=== PATIENT | female | born 1945 | race Caucasian/White ===

== ENCOUNTER 2016-04-26 05:25 | Inpatient (IN) | payer BC, OTHER ==
[2016-04-23 12:30] VITALS: BMI 28.0
[~2016-04-26] VITALS: Ht 162.6 cm; Wt 73.8 kg
[2016-04-26] VITALS (10 sets, daily range): BP systolic 102–130; BP diastolic 62–69; PULSE 62–96; TEMP 36.6–36.9; O2SAT 94–100; Ht 162.6 cm; Wt 73.8 kg
[~2016-04-26 05:25] MED LIST: AMPI500C9 PO
[2016-04-26] MEDS ORDERED: ACETAMINOPHEN IV 1000MG/100ML IV SCH (06:00)
[2016-04-26] MEDS ORDERED: LACTATED RINGER'S 1000ML 1,000 ML IV SCH (06:00)
[2016-04-26] MEDS ORDERED: CEFAZOLIN 2000 MG/60 ML D5W IV SCH (06:00)
[2016-04-26] MEDS ORDERED: ROCURONIUM BROMIDE 10 MG/ML 5 ML VIAL ONE ×3 (06:48→11:42)
[2016-04-26] MEDS ORDERED: FENTANYL CITRATE INJ 50 MCG/1 ML 2 ML VIAL ONE (06:48)
[2016-04-26] MEDS ORDERED: NEOSTIGMINE METHYLSULFATE 5 MG/5 ML SYR ONE (06:48)
[2016-04-26] MEDS ORDERED: LIDOCAINE HCL 2% 2 ML VIAL (20MG/ML) ONE (06:48)
[2016-04-26] MEDS ORDERED: ONDANSETRON INJ 2 MG/ML 2 ML VIAL ONE (06:48)
[2016-04-26] MEDS ORDERED: MIDAZOLAM HCL 1 MG/ML 2ML VIAL ONE (06:48)
[2016-04-26] MEDS ORDERED: GLYCOPYRROLATE INJ 0.2 MG/ML VIAL ONE (06:48)
[2016-04-26] MEDS ORDERED: PROPOFOL IV EMULSION 10 MG/ML 20 ML VIAL IV ONE (06:48)
[2016-04-26] MEDS ORDERED: DEXAMETHASONE SOD INJ 4 MG/ML VIAL ONE (06:49)
--- NOTE | 2016-04-26 07:03 | History & Physical Bridge Note ---
H&P Re-Evaluation Bridge Note: I have examined the patient, reviewed the History & Physical and in the interval since the performance of the History & Physical I have noted the following changes of clinical significance: No changes noted
[2016-04-26] MEDS ORDERED: HYDROmorphone INJ 2 MG/ML SYR/VIAL ONE (08:20)
[2016-04-26] MEDS ORDERED: ALBUMIN HUMAN 5% 12.5 GM/250 ML VIAL IV ONE (10:13)
[2016-04-26] MEDS ORDERED: SURGICEL ABSORB HEMOSTAT 2IN X 14IN TOP ONE (10:20)
[2016-04-26] MEDS ORDERED: HYDROmorphone INJ 1 MG/ML SYR IV PRN ×2 (12:15→12:30)
[2016-04-26] MEDS ORDERED: ACETAMINOPHEN 500 MG TAB PO SCH (12:15)
[2016-04-26] MEDS ORDERED: ONDANSETRON INJ 2 MG/ML 2 ML VIAL IV PRN ×2 (12:15→12:30)
[2016-04-26] MEDS ORDERED: LABETALOL HCL IV 5 MG/ML 20ML IV PRN (12:30)
[2016-04-26] MEDS ORDERED: FLUMAZENIL 0.1 MG/1 ML 10 ML VIAL IV PRN (12:30)
[2016-04-26] MEDS ORDERED: EpHEDrine SULFATE INJ 50 MG/ML AMP IV PRN (12:30)
[2016-04-26] MEDS ORDERED: PROMETHAZINE HCL INJ 12.5 MG in SODIUM CHLORIDE 0.9% 50ML 50 ML IV PRN (12:30)
[2016-04-26] MEDS ORDERED: ATROPINE SULFATE 0.1 MG/ML 5ML SYR IV PRN (12:30)
[2016-04-26] MEDS ORDERED: NALOXONE HCL 0.4 MG/1 ML VIAL/CARP IV PRN (12:30)
[2016-04-26] MEDS ORDERED: HYDROmorphone INJ 1 MG/ML SYR ONE (12:38)
[2016-04-26 12:42] LABS: ISTAT CREATININE 0.8 mg/dl (0.6-1.3); ISTAT HEMOGLOBIN 11.2 g/dl (12.0-16.0); ISTAT IONIZED CALCIUM 1.18 mmol/l (1.12-1.32)
--- NOTE | 2016-04-26 12:43 | [facility] Post Operative Brief Note ---
Immediate Operative Summary Operative Date Apr 26, 2016. Pre-Operative Diagnosis Hydronephrosis of right kidney due to recurrent obstructing tumor versus scarring Post-Operative Diagnosis Right hydronephrosis with obliterated ureter, no evidence of tumor Procedure(s) Performed Right Open Ureteral Resection and Anastomosis, Flexible Cystoscopy, Right ureteral stent placement, repair of right external iliac artery laceration Surgeon Dr. Rick Ibrahim Receiving Lead Surgeon(s) Dr. Marcus Hayden and Joao COLEMAN Estimated Blood Loss 220 ML Findings Obliterated ureter at the level of stricture on the right, viable and well vascularized anastomosis, copious scarring on right pelvic sidewall. Specimens Permanent Specimens A: Proximal Ureter, Right B: Distal Ureter, Right Drains #10 MARGARITA RLQ, 6 fr multilength ureteral stent, 16 fr phan to gravity Anesthesia GAET Complication(s) None Disposition Recovery Room / PACU
[2016-04-26 12:46] LABS: HEMATOCRIT 34.2 % (37-47); MEAN CELL VOLUME 92.4 fL (80-100); MEAN CORPUSCULAR HEMOGLOBIN 30.5 pg (25-34); PLATELET COUNT 143 K/uL (130-400)
[2016-04-26 13:07] LABS: BUN/CREATININE RATIO 13.3 (10-20); CALCIUM 8.2 mg/dl (8.5-10.1); CREATININE 0.97 mg/dl (0.60-1.20); POTASSIUM 3.8 mmol/L (3.5-5.1)
--- NOTE | 2016-04-26 13:17 | DIAGNOSTIC IMAGING REPORT ---
KUB HISTORY: s/p stent placement for ureteral reanastomosis COMPARISON: None. FINDINGS: There is a right ureteral stent which appears to be in good position. There is a percutaneous nephrostomy tube in place. This overlaps the proximal ureteral stent. The tube/stent appears to be intact. Surgical clips and suture material within the right lower quadrant. There are skin stormy within the right lower quadrant. There is an overlapping surgical drain within the right lower quadrant. No renal calculi. No ureteral calculi. No pneumoperitoneum or pneumatosis. IMPRESSION: Postoperative changes as described above with a right ureteral stent and percutaneous nephrostomy tube which appear to be in good position by conventional radiographic technique. Electronically signed by: Wili Aguiar M.D. 04/26/2016 1:15 PM
--- NOTE | 2016-04-26 13:28 | Anesthesiology Progress Note ---
Anesthesia Post Op Note Date & Time Apr 26, 2016 at 13:27 Vital Signs Pain Intensity: 2 Vital Signs Past 12 Hours Date Time Temp Pulse Resp B/P Pulse Ox O2 Delivery O2 Flow Rate FiO2 04/26/16 13:15 36.9 66 12 114/57 98 Nasal Cannula 2 04/26/16 13:05 36.9 61 16 118/64 98 Nasal Cannula 2 04/26/16 12:55 62 14 119/61 99 Nasal Cannula 2 04/26/16 12:45 66 18 123/68 100 Mask 10 04/26/16 12:35 86 18 135/78 100 Mask 10 04/26/16 12:25 37.6 80 20 123/74 100 Mask 10 04/26/16 05:57 36.6 96 20 130/67 97 Room Air Notes Mental Status: alert / awake / arousable, participated in evaluation Pt Amnestic to Procedure: Yes Nausea / Vomiting: adequately controlled Pain: adequately controlled Airway Patency, RR, SpO2: stable & adequate BP & HR: stable & adequate Hydration State: stable & adequate Anesthetic Complications: no major complications apparent
--- NOTE | 2016-04-26 13:55 | OPERATIVE REPORT ---
DATE OF OPERATION: 04/26/2016 PREOPERATIVE DIAGNOSES: Right mid ureteral stricture and hydronephrosis, history of recurrent gynecological malignancy. POSTOPERATIVE DIAGNOSIS: Right obliterated mid ureter with stricture, no evidence of recurrent carcinoma. PROCEDURES: Right open resection and anastomosis of the ureter, flexible cystoscopy with right ureteral stent placement, repair of external iliac artery laceration. SURGEON: Dr. Rick Ibrahim. ASSISTANTS: Dr. Marcus Hayden and VIRGINIA Akers. ANESTHESIA: General anesthesia with endotracheal intubation. ESTIMATED BLOOD LOSS: 220 mL. IV FLUIDS: 1500 mL of crystalloid and 250 mL of albumin. DRAINS LEFT IN PLACE: Include a #10 MARGARITA drain in the right lower quadrant, 6-Belgian multilength ureteral stent confirmed in the bladder on cystoscopy and a 16-Belgian Santos catheter to gravity drainage. SPECIMENS SENT TO PATHOLOGY: Proximal right ureter and distal right ureter. FINDINGS: Obliterated ureter at the level of the stricture on the right hand side, viable and well vascularized ureteral stumps with a watertight anastomosis, copious scarring on the right pelvic sidewall, small laceration of the external iliac artery repaired with a 4-0 Prolene with excellent hemostasis. COMPLICATIONS: Small laceration of external right iliac artery. BRIEF HISTORY: Ms. 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 She was found on subsequent PET scan to have a question of persistent disease at the site of resection as well as progressive right-sided hydronephrosis. Retrograde pyelography demonstrated a blind ending ureter at the level of surgical clips in proximity to the mid ureter. A percutaneous nephrostomy was placed and an antegrade nephrostogram demonstrated an absent portion of the ureter not allowing for the passage of even contrast in the mid ureter for approximately 3 cm in length. After discussion of risks and benefits of various forms of management, she has decided upon open resection of her stenotic ureter and anastomosis to manage her disease. The numerous potential complications which could be encountered have been discussed with the patient at length. Please see H\T\P for further details. The patient had a positive culture via her nephrostomy for which she was treated with suppressive antibiotics in the form of culture specific ampicillin preoperatively. Intravenous antibiotics are used for preoperative coverage today. The patient received SCDs for DVT prophylaxis. DESCRIPTION OF PROCEDURE: The patient was properly identified and brought to the operative suite. After identification of appropriate consent on the chart, general anesthesia with endotracheal intubation was initiated and the patient was prepped and draped in a standard fashion for this procedure. timers inspector-out procedure was followed. The patient was placed in a gentle mild right flank position with the right side up. Some flexion was applied to the table. All pressure points were well padded. A percutaneous nephrostomy was hung to an IV drip to allow for irrigation of the proximal ureter as necessary. After prepping and draping the patient, a sterile Santos catheter was placed. A modified Patel incision was made in the right lower quadrant and brought down to the fascia via anterior abdominal wall. The fascia of the external oblique was incised and muscle layers were traversed until the peritoneum was identified. We bluntly dissected laterally to access the retroperitoneum and the psoas without entering the peritoneal cavity. Some small peritoneotomy were made throughout the case and closed at the end prior to completion of closure, but these were limited in size. The ureter was identified in its expected location over the psoas muscle. A vessel loop was placed around it to allow for mobilization distally. Copious amounts of scarring in the retroperitoneum and on the right pelvic sidewall were appreciated throughout the case. Dissection was carried out distally over the common iliacs and iliac vasculature. Anatomy was somewhat distorted due to scarring. While crossing the external iliac vessels and over the course of a slow and careful dissection, the ureter was noted to obliterate with the distal ureter continuity not being clear. At this level, a small laceration was made posterior to the ureter at the level of the external iliac artery. Using pressure above and below with the sponge sticks a closure was able to be made using a 4-0 Prolene suture with excellent hemostasis. Dissection was continued. Seeing that the ureter was not clearly identified, a decision was made to proceed with intraoperative cystoscopy and stent placement to assist. The Santos catheter was removed and flexible cystoscope was passed into the bladder. No abnormal intravesical findings including papillary masses or calculi were appreciated on limited cystoscopy. Right ureteral orifice was identified and a 5-Belgian blunt tip catheter was advanced upward into the surgical field. This was able to be palpated and was sutured using a 3-0 Vicryl to use as a tag. Using the intraoperative suture and further careful dissection with Kitnatalie and Metzenbaum as necessary, the distal ureter was able to be identified, was freed downward the level of the bladder. Good vascularity of the ureter outside the area of complete mid ureteral obliteration with the ureter was down to a fibrous band was noted. The ureter was spatulated on both ends and some of the flexion was removed from the table. After sufficient proximal and distal dissection, the 2 ends of the ureter were able to be reapproximated in a tension free fashion. Interrupted 3-0 and 4-0 Vicryl sutures were used to complete the anastomosis. A percutaneous nephrostomy was flushed and gaps with leaks were closed as necessary. Good viability of both ends of the ureter were appreciated. The wound was generously irrigated and excellent hemostasis was appreciated. A separate inferior stab wound was made to pass a #10 MARGARITA drain which was placed within the retroperitoneum while avoiding placing it directly over the anastomosis. The remainder of the flexion was removed from the table. Peritoneotomy were closed as noted. Wound was closed in 2 levels using #1 Vicryl suture on the transversalis and internal oblique musculature and #1 PDS on the fascia of the external oblique. 3-0 Vicryl suture was used in an interrupted fashion to close the subcutaneous tissues and skin stormy were used at the level of the skin. MARGARITA was placed to bulb suction. Santos catheter was replaced and placed to gravity drainage. Prior to completion of the anastomosis, a 6-Belgian multilength ureteral stent was advanced from the anastomosis distally and proximally with a hydronephrotic drip present from both sides. A cystoscope was passed into the bladder and bladder was evaluated and noted to have redundant coil within it prior to completion of the case. Santos catheter was replaced as noted and anesthesia was reversed. The patient was transferred to recovery room in stable condition. FOLLOWUP CARE: The patient will be brought to the recovery room and admitted to the floor for standard postoperative management. I attest to the content of the Intraoperative Record and any orders documented therein. Any exceptions are noted below. PRETTY
[2016-04-26] MEDS: ACETAMINOPHEN IV 1,000 MG in EMPTY BAG 0 ML IV SCH ×2 (15:34→22:41)
[2016-04-26] MEDS: LACTATED RINGER'S 1000ML 1,000 ML IV SCH ×2 (15:35→20:44)
--- NOTE | 2016-04-26 15:43 | Anesthesiology Progress Note ---
Anesthesia Progress Note Date of Service Apr 26, 2016. Progress Notes The patient is s/p ureteral surgery by Dr. Ibrahim. She was signed out of the PACU without any issues. However, while on the floor the patient noted that her left eye felt scratchy as if there was something in it. On exam the patient 's left eye appears red and teary. The patient likely has a corneal abrasion. She will be given erythromycin eye ointment several times/day for the next four days for her left eye. She was counseled not to touch or scratch her left eye. If the patient's eye is not feeling better by tomorrow than she is to contact the anesthesia department for a reevaluation. I spoke to Dr. Fierro who provided her anesthesia. He will be electronic equipment installer for the upcoming weekend and will be able to follow up with her.
[2016-04-26] MEDS: CEFAZOLIN IV 1,000 MG in DEXTROSE 5% 50ML 50 ML IV SCH ×2 (15:52→23:39)
[2016-04-26] MEDS: ERYTHROMYCIN OP OINT 5 MG/GM 3.5 GM TUBE OPL SCH ×2 (16:22→20:43)
[2016-04-26] MEDS: HEPARIN SOD 5000 UNIT/0.5 ML CARP SQ SCH (18:32)
[2016-04-26] MEDS: DOCUSATE SODIUM 100 MG CAP PO SCH (20:43)
[2016-04-27 03:50] VITALS: BP 106/63; PULSE 84; TEMP 36.9; O2SAT 95
[2016-04-27] MEDS: LACTATED RINGER'S 1000ML 1,000 ML IV SCH ×2 (06:10→16:28)
[2016-04-27] MEDS: OXYCODONE/ACETAMINOPHEN 7.5-325 TAB PO PRN ×4 (06:11→19:22)
[2016-04-27] MEDS: ERYTHROMYCIN OP OINT 5 MG/GM 3.5 GM TUBE OPL SCH ×4 (06:11→19:26)
[2016-04-27] MEDS: HEPARIN SOD 5000 UNIT/0.5 ML CARP SQ SCH ×2 (06:16→19:22)
[2016-04-27 06:37] LABS: BASO % 0.1 %; BASO ABS # 0.01 K/uL (0-0.2); COMPLETE YES; HEMATOCRIT 30.7 % (37-47); IG% 0.1 %; LYMPH ABS # 1.71 K/uL (1.2-3.4); MEAN CELL VOLUME 93.3 fL (80-100); MEAN CORPUSCULAR HEMOGLOBIN 30.7 pg (25-34); MEAN CORPUSCULAR HGB CONC 32.9 g/dl (32-36); MEAN PLATELET VOLUME 9.5 fL (7.4-10.4); MONO % 7.2 %; NEUT % 67.6 %; PLATELET COUNT 147 K/uL (130-400); RED BLOOD COUNT 3.29 M/uL (4.2-5.4); WHITE BLOOD COUNT 6.85 K/uL (4.8-10.8)
[2016-04-27 07:03] LABS: BUN/CREATININE RATIO 15.5 (10-20); CALCIUM 8.2 mg/dl (8.5-10.1); CREATININE 0.93 mg/dl (0.60-1.20); POTASSIUM 4.2 mmol/L (3.5-5.1)
[2016-04-27] MEDS: CEFAZOLIN IV 1,000 MG in DEXTROSE 5% 50ML 50 ML IV SCH (07:18)
[2016-04-27 07:49] VITALS: BP 105/62; PULSE 83; TEMP 36.9; O2SAT 95
[2016-04-27] MEDS: ACETAMINOPHEN 500 MG TAB PO SCH ×3 (08:14→21:07)
[2016-04-27] MEDS: DOCUSATE SODIUM 100 MG CAP PO SCH ×2 (08:32→21:07)
--- NOTE | 2016-04-27 08:50 | Anesthesiology Progress Note ---
Anesthesia Post Op Note Date & Time Apr 27, 2016 at 08:49 Vital Signs Pain Intensity: 2.0 Vital Signs Past 12 Hours Date Time Temp Pulse Resp B/P Pulse Ox O2 Delivery O2 Flow Rate FiO2 04/27/16 07:49 36.9 83 16 105/62 95 Room Air 04/27/16 07:20 Room Air 04/27/16 03:50 36.9 84 16 106/63 95 Room Air 04/26/16 23:30 Room Air 04/26/16 23:15 36.6 71 16 102/62 94 Room Air Notes Mental Status: alert / awake / arousable, participated in evaluation Pt Amnestic to Procedure: Yes Nausea / Vomiting: adequately controlled Pain: adequately controlled Airway Patency, RR, SpO2: stable & adequate BP & HR: stable & adequate Hydration State: stable & adequate Anesthetic Complications: no major complications apparent
[2016-04-27] MEDS ORDERED: OXYCODONE/ACETAMINOPHEN 7.5-325 TAB PO PRN (09:00)
--- NOTE | 2016-04-27 09:44 | Progress Note ---
Subjective Date of Service: Apr 27, 2016. Subjective Pt evaluation today including: conversation w/ patient, physical exam, chart review, lab review, review of inpatient medication list Pain: Incisional, controlled PO Intake: Sb clears, no emesis Voiding: phan catheter in place 71 yo female POD#1 s/p R ureteral open excision and reanastomosis, doing well. L corneal abrasion yesterday noted, feels better today. She notes she was OOBTC twice yesterday, MARGARITA with minimal serosang output. Doing well overall, intraop findings reviewed with patient. Hb drifting downards, otherwise labs stable, no acute or ongoing blood loss suspected. Review of Systems Constitutional: No chills, No fever Eyes: No worsening of vision ENT: No hearing loss Respiratory: No shortness of breath, No sputum, No wheezing Cardiac: No chest pain Abdomen: + pain, No nausea, No vomiting Female : + see HPI, No hematuria Neurologic: No memory loss, No numbness/tingling, No paralysis, No weakness Endo: No excessive urination Skin: No new/changing skin lesions Objective Vital Signs Date Time Temp Pulse Resp B/P Pulse Ox O2 Delivery O2 Flow Rate FiO2 04/27/16 07:49 36.9 83 16 105/62 95 Room Air 04/27/16 07:20 Room Air 04/27/16 03:50 36.9 84 16 106/63 95 Room Air 04/26/16 23:30 Room Air 04/26/16 23:15 36.6 71 16 102/62 94 Room Air 04/26/16 19:05 36.9 88 16 119/69 100 Nasal Cannula 2.0 04/26/16 19:00 100 Nasal Cannula 2.0 04/26/16 17:05 36.7 86 16 108/62 99 Nasal Cannula 2.0 04/26/16 16:13 36.9 70 16 113/67 100 Nasal Cannula 2.0 04/26/16 15:45 95 Nasal Cannula 2.0 04/26/16 15:14 36.6 75 16 112/66 94 Nasal Cannula 3.0 04/26/16 14:28 62 16 109/63 98 Nasal Cannula 2.0 04/26/16 14:00 36.6 68 16 117/68 98 Nasal Cannula 2.0 04/26/16 14:00 98 Nasal Cannula 2.0 04/26/16 14:00 98 Nasal Cannula 2.0 04/26/16 13:50 36.9 77 22 103/58 99 Nasal Cannula 2 04/26/16 13:35 36.9 64 12 112/54 98 Nasal Cannula 2 04/26/16 13:25 74 15 115/60 99 Nasal Cannula 2 04/26/16 13:15 36.9 66 12 114/57 98 Nasal Cannula 2 04/26/16 13:05 36.9 61 16 118/64 98 Nasal Cannula 2 04/26/16 12:55 62 14 119/61 99 Nasal Cannula 2 04/26/16 12:45 66 18 123/68 100 Mask 10 04/26/16 12:35 86 18 135/78 100 Mask 10 04/26/16 12:25 37.6 80 20 123/74 100 Mask 10 Physical Exam General Appearance: WD/WN, no apparent distress ENT: hearing grossly normal Neck: supple, no adenopathy Respiratory/Chest: no respiratory distress, no accessory muscle use Cardiovascular: no JVD Abdomen: soft, + pertinent finding Neurologic/Psychiatric: alert, oriented x 3 Skin: normal color Laboratory Results Last 24 Hours Test 04/26/16 11:28 04/26/16 12:40 04/27/16 06:15 Bedside Hemoglobin 11.2 g/dl Bedside Hematocrit 33 % Bedside Sodium 140 mEq/L Bedside Potassium 3.9 mEq/L Bedside Chloride 102 mEq/L Bedside Total CO2 27 mEq/l Anion Gap 15.0 mmol/L 9.0 mmol/L 7.0 mmol/L Bedside Blood Urea Nitrogen 13 mg/dl Bedside Creatinine 0.8 mg/dl Bedside Glucose (other) 110 mg/dl Bedside Ionized Calcium (Lila) 1.18 mmol/l White Blood Count 6.30 K/uL 6.85 K/uL Red Blood Count 3.70 M/uL 3.29 M/uL Hemoglobin 11.3 g/dL 10.1 g/dL Hematocrit 34.2 % 30.7 % Mean Corpuscular Volume 92.4 fL 93.3 fL Mean Corpuscular Hemoglobin 30.5 pg 30.7 pg Mean Corpuscular Hemoglobin Concent 33.0 g/dl 32.9 g/dl RDW Standard Deviation 44.8 fL 47.1 fL RDW Coefficient of Variation 13.4 % 13.7 % Platelet Count 143 K/uL 147 K/uL Mean Platelet Volume 9.0 fL 9.5 fL Sodium Level 142 mmol/L 140 mmol/L Potassium Level 3.8 mmol/L 4.2 mmol/L Chloride Level 107 mmol/L 104 mmol/L Carbon Dioxide Level 26 mmol/L 29 mmol/L Blood Urea Nitrogen 13 mg/dl 14 mg/dl Creatinine 0.97 mg/dl 0.93 mg/dl Est Creatinine Clear Calc Drug Dose 53.9 ml/min 56.2 ml/min Estimated GFR () 69.1 72.7 Estimated GFR (Non- 59.6 62.7 BUN/Creatinine Ratio 13.3 15.5 Random Glucose 121 mg/dl 101 mg/dl Calcium Level 8.2 mg/dl 8.2 mg/dl Neutrophils (%) (Auto) 67.6 % Lymphocytes (%) (Auto) 25.0 % Monocytes (%) (Auto) 7.2 % Eosinophils (%) (Auto) 0.0 % Basophils (%) (Auto) 0.1 % Neutrophils # (Auto) 4.63 K/uL Lymphocytes # (Auto) 1.71 K/uL Monocytes # (Auto) 0.49 K/uL Eosinophils # (Auto) 0.00 K/uL Basophils # (Auto) 0.01 K/uL Immature Granulocyte % (Auto) 0.1 % Immature Granulocyte # (Auto) 0.01 K/uL Assessment and Plan A/P 71 yo female POD#1 s/p R ureteral excision and anastomosis. Doing well. Increase diet and activity today. Plan discussed with patient - TOV in 5 days, nephrostogram in 2 weeks prior to postop visit with possible DC of PCN at that time depending on results. Will leave stent in place x 4-6 weeks. Patient on ampicillin preop for positive nephrostomy culture. Will see Dr. Hayden over the weekend. Continued [facility] stay due to: inadequate po fluid intake, inadequate oral pain control Discharge planning: home
[2016-04-27 11:05] VITALS: BP 119/73; PULSE 88; TEMP 37; O2SAT 96
[2016-04-27 15:05] VITALS: BP 117/70; PULSE 90; TEMP 36.8; O2SAT 95
[2016-04-27 20:58] VITALS: BP 96/58; PULSE 81; TEMP 36.9; O2SAT 91
[2016-04-27 23:38] VITALS: BP 106/65; PULSE 85; TEMP 36.8; O2SAT 92
[2016-04-28] MEDS: LACTATED RINGER'S 1000ML 1,000 ML IV SCH ×3 (00:03→19:01)
[2016-04-28] MEDS: ACETAMINOPHEN 500 MG TAB PO SCH ×4 (02:55→20:33)
[2016-04-28] MEDS: ERYTHROMYCIN OP OINT 5 MG/GM 3.5 GM TUBE OPL SCH ×4 (06:22→19:00)
[2016-04-28 06:41] LABS: BASO % 0.2 %; BASO ABS # 0.01 K/uL (0-0.2); COMPLETE YES; EOS % 0.2 %; HEMATOCRIT 28.4 % (37-47); LYMPH % 28.6 %; LYMPH ABS # 1.73 K/uL (1.2-3.4); MEAN CELL VOLUME 92.5 fL (80-100); MEAN CORPUSCULAR HEMOGLOBIN 30.9 pg (25-34); MEAN CORPUSCULAR HGB CONC 33.5 g/dl (32-36); MEAN PLATELET VOLUME 9.4 fL (7.4-10.4); MONO % 6.6 %; NEUT % 64.4 %; PLATELET COUNT 133 K/uL (130-400); RED BLOOD COUNT 3.07 M/uL (4.2-5.4); WHITE BLOOD COUNT 6.04 K/uL (4.8-10.8)
[2016-04-28] MEDS: HEPARIN SOD 5000 UNIT/0.5 ML CARP SQ SCH ×2 (06:43→19:07)
[2016-04-28 07:07] LABS: CALCIUM 8.1 mg/dl (8.5-10.1); CREATININE 0.74 mg/dl (0.60-1.20); POTASSIUM 3.9 mmol/L (3.5-5.1)
[2016-04-28 07:13] VITALS: BP 123/71; PULSE 90; TEMP 36.9; O2SAT 95
[2016-04-28] MEDS: OXYCODONE/ACETAMINOPHEN 7.5-325 TAB PO PRN ×3 (08:33→19:03)
[2016-04-28] MEDS: DOCUSATE SODIUM 100 MG CAP PO SCH ×2 (09:00→20:51)
--- NOTE | 2016-04-28 10:08 | Progress Note ---
Progress Note S: Doing very well - tolerating a diet - no nausea - no BM/flatus yet - OOB to chair - no ambulation yet - reports she had mild hematuria with activity overnight, cleared this AM O: 04/28/16 06:12 Red Blood Count 3.07, Mean Corpuscular Volume 92.5, Mean Corpuscular Hemoglobin 30.9, Mean Corpuscular Hemoglobin Concent 33.5, Mean Platelet Volume 9.4, Neutrophils (%) (Auto) 64.4, Lymphocytes (%) (Auto) 28.6, Monocytes (%) (Auto) 6.6, Eosinophils (%) (Auto) 0.2, Basophils (%) (Auto) 0.2, Neutrophils # (Auto) 3.89, Lymphocytes # (Auto) 1.73, Monocytes # (Auto) 0.40, Eosinophils # (Auto) 0.01, Basophils # (Auto) 0.01 04/28/16 06:12 Test 04/28/16 06:12 White Blood Count 6.04 K/uL (4.8-10.8) Red Blood Count 3.07 M/uL (4.2-5.4) Hemoglobin 9.5 g/dL (12.0-16.0) Hematocrit 28.4 % (37-47) Mean Corpuscular Volume 92.5 fL (80-100) Mean Corpuscular Hemoglobin 30.9 pg (25-34) Mean Corpuscular Hemoglobin Concent 33.5 g/dl (32-36) Platelet Count 133 K/uL (130-400) Mean Platelet Volume 9.4 fL (7.4-10.4) Neutrophils (%) (Auto) 64.4 % Lymphocytes (%) (Auto) 28.6 % Monocytes (%) (Auto) 6.6 % Eosinophils (%) (Auto) 0.2 % Basophils (%) (Auto) 0.2 % Neutrophils # (Auto) 3.89 K/uL (1.4-6.5) Lymphocytes # (Auto) 1.73 K/uL (1.2-3.4) Monocytes # (Auto) 0.40 K/uL (0.11-0.59) Eosinophils # (Auto) 0.01 K/uL (0-0.5) Basophils # (Auto) 0.01 K/uL (0-0.2) RDW Standard Deviation 46.4 fL (36.4-46.3) RDW Coefficient of Variation 13.9 % (11.5-14.5) Immature Granulocyte % (Auto) 0.0 % Immature Granulocyte # (Auto) 0.00 K/uL (0.00-0.02) Anion Gap 7.0 mmol/L (3-11) Est Creatinine Clear Calc Drug Dose 70.6 ml/min Estimated GFR () 95.8 Estimated GFR (Non- 82.7 BUN/Creatinine Ratio 13.0 (10-20) Calcium Level 8.1 mg/dl (8.5-10.1) Vital Signs Past 12 Hours Date Time Temp Pulse Resp B/P Pulse Ox O2 Delivery O2 Flow Rate FiO2 04/28/16 07:13 36.9 90 20 123/71 95 04/27/16 23:55 Room Air 04/27/16 23:38 36.8 85 16 106/65 92 Room Air Low MARGARITA output - appropriate UoP NAD AAOx3 no resp distress RRR abd soft, incision healing appropriately - dressing removed - stormy intact - MARGARITA serosang - urine clear (phan) A/p: POD #2 s/p R U-U - keep all drains for now - goal of ambulation today - will watch her H and H - although she is asymptomatic - assuming she continues to progress overnight, we will plan for d/c of phan in AM, MARGARITA later in the day, and possible d/c home tomorrow afternoon
[2016-04-28 15:01] VITALS: BP 122/72; PULSE 92; TEMP 37; O2SAT 95
[2016-04-28 23:02] VITALS: BP 113/68; PULSE 85; TEMP 36.5; O2SAT 96
[2016-04-29] MEDS: OXYCODONE/ACETAMINOPHEN 7.5-325 TAB PO PRN ×2 (00:02→11:31)
[2016-04-29] MEDS: ACETAMINOPHEN 500 MG TAB PO SCH ×2 (03:00→08:03)
[2016-04-29] MEDS: LACTATED RINGER'S 1000ML 1,000 ML IV SCH (03:39)
[2016-04-29 06:01] LABS: BASO % 0.2 %; BASO ABS # 0.01 K/uL (0-0.2); COMPLETE YES; EOS % 1.2 %; LYMPH % 31.9 %; LYMPH ABS # 1.36 K/uL (1.2-3.4); MEAN CELL VOLUME 93.3 fL (80-100); MEAN CORPUSCULAR HEMOGLOBIN 30.7 pg (25-34); MEAN CORPUSCULAR HGB CONC 32.9 g/dl (32-36); MEAN PLATELET VOLUME 9.4 fL (7.4-10.4); MONO % 6.1 %; NEUT % 60.6 %; PLATELET COUNT 136 K/uL (130-400); WHITE BLOOD COUNT 4.26 K/uL (4.8-10.8)
[2016-04-29] MEDS: ERYTHROMYCIN OP OINT 5 MG/GM 3.5 GM TUBE OPL SCH ×2 (06:21→11:00)
[2016-04-29] MEDS: HEPARIN SOD 5000 UNIT/0.5 ML CARP SQ SCH (06:21)
[2016-04-29 06:28] LABS: CALCIUM 8.2 mg/dl (8.5-10.1); CREATININE 0.71 mg/dl (0.60-1.20); POTASSIUM 3.8 mmol/L (3.5-5.1)
[2016-04-29] MEDS: DOCUSATE SODIUM 100 MG CAP PO SCH (08:02)
[2016-04-29] MEDS ORDERED: HYDR-5688 PO (10:14)
--- NOTE | 2016-04-29 10:16 | Discharge Instructions ---
Discharge Instructions Admission Reason for Admission: Right Ureteral Obstruction Discharge Discharge Diagnosis / Problem: right ureteral stricture Discharge Goals Goal(s): Decrease discomfort, Improve function, Increase independence, Improve disease control Activity Recommendations Activity Limitations: per Instructions/Follow-up section Lifting Limitations: no more than 25 pounds Exercise/Sports Limitations: until after follow-up appointment May Resume Sexual Activity: after follow-up appointment Shower/Bathe: no limitations (you may shower - no bath or hot tub for 2 weeks) Driving or Machine Use: please avoid driving while on pain medications or until after cleared by Dr. Ibrahim . Instructions / Follow-Up Instructions / Follow-Up Please keep your nephrostomy tube clamped. Please keep your previously scheduled appointment with Dr. Ibrahim Current Hospital Diet Hospital Diet(s): Regular Diet Discharge Diet Recommended Diet: Regular Diet Procedures Procedures Performed: Right Open Ureteral Resection and Anastomosis, Flexible Cystoscopy, Right ureteral stent placement, repair of right external iliac artery laceration Pending Studies Studies pending at discharge: no Medical Emergencies . Who to Call and When: Medical Emergencies: If at any time you feel your situation is an emergency, please call 911 immediately. . Non-Emergent Contact Non-Emergency issues call your: Urologist Call Non-Emergent contact if: you have a fever, temperature is above 101.5, your pain is not controlled, your pain is worsening, wound has increased drainage, wound has increased redness . . "Provider Documentation" section prepared by Vin Chavarria. VTE Core Measure Inpt VTE Proph given/why not?: Treatment not indicated
--- NOTE | 2016-04-29 10:22 | Progress Note ---
Progress Note S: Doing well - ambulated without difficulty yesterday - tolerating a diet - no BM or flatus yet, but no nausea - pain well controlled - phan out this AM (30 min ago - no void yet) O: 04/29/16 05:32 Red Blood Count 3.00, Mean Corpuscular Volume 93.3, Mean Corpuscular Hemoglobin 30.7, Mean Corpuscular Hemoglobin Concent 32.9, Mean Platelet Volume 9.4, Neutrophils (%) (Auto) 60.6, Lymphocytes (%) (Auto) 31.9, Monocytes (%) (Auto) 6.1, Eosinophils (%) (Auto) 1.2, Basophils (%) (Auto) 0.2, Neutrophils # (Auto) 2.58, Lymphocytes # (Auto) 1.36, Monocytes # (Auto) 0.26, Eosinophils # (Auto) 0.05, Basophils # (Auto) 0.01 04/29/16 05:32 Test 04/29/16 05:32 White Blood Count 4.26 K/uL (4.8-10.8) Red Blood Count 3.00 M/uL (4.2-5.4) Hemoglobin 9.2 g/dL (12.0-16.0) Hematocrit 28.0 % (37-47) Mean Corpuscular Volume 93.3 fL (80-100) Mean Corpuscular Hemoglobin 30.7 pg (25-34) Mean Corpuscular Hemoglobin Concent 32.9 g/dl (32-36) Platelet Count 136 K/uL (130-400) Mean Platelet Volume 9.4 fL (7.4-10.4) Neutrophils (%) (Auto) 60.6 % Lymphocytes (%) (Auto) 31.9 % Monocytes (%) (Auto) 6.1 % Eosinophils (%) (Auto) 1.2 % Basophils (%) (Auto) 0.2 % Neutrophils # (Auto) 2.58 K/uL (1.4-6.5) Lymphocytes # (Auto) 1.36 K/uL (1.2-3.4) Monocytes # (Auto) 0.26 K/uL (0.11-0.59) Eosinophils # (Auto) 0.05 K/uL (0-0.5) Basophils # (Auto) 0.01 K/uL (0-0.2) RDW Standard Deviation 46.4 fL (36.4-46.3) RDW Coefficient of Variation 13.5 % (11.5-14.5) Immature Granulocyte % (Auto) 0.0 % Immature Granulocyte # (Auto) 0.00 K/uL (0.00-0.02) Anion Gap 4.0 mmol/L (3-11) Est Creatinine Clear Calc Drug Dose 73.6 ml/min Estimated GFR () 100.7 Estimated GFR (Non- 86.9 BUN/Creatinine Ratio 11.0 (10-20) Calcium Level 8.2 mg/dl (8.5-10.1) Vital Signs Past 12 Hours Date Time Temp Pulse Resp B/P Pulse Ox O2 Delivery O2 Flow Rate FiO2 04/29/16 08:05 Room Air 04/28/16 23:39 Room Air 04/28/16 23:02 36.5 85 16 113/68 96 Room Air NAD AAOx3 no resp distress RRR abd soft, not distended - incision without signs of infection - MARGARITA serous (low output overnight) - no edema A/p: S/p R uretero-ureteostomy - doing well - phan out now - if MARGARITA output remains stable, we will plan for MARGARITA d/c and d/c home later today
[2016-04-29 13:30] VITALS: BP 113/68; PULSE 85; TEMP 36.5; O2SAT 96
--- NOTE | 2016-04-30 14:03 | DISCHARGE SUMMARY ---
ADMITTING DIAGNOSIS: Right postoperative impassable mid ureteral stricture. DISCHARGE DIAGNOSIS: Same or same. PROCEDURES OVER THE COURSE ON ADMISSION: Include an open right resection and reanastomosis of strictured ureter on 04/26/2016. ADMITTING ATTENDING: Dr. Rick Ibrahim. COMPLICATIONS: None. BRIEF HISTORY: Ms. Holden is a pleasant 71-year-old female who I have seen for a history of progressive right-sided hydronephrosis due to evidence of ureteral obstruction at the site of prior resection of a LAB ASSOCIATE malignancy. Please see H\T\P for further details. The patient has decided on open resection of this area to manage her disease. Percutaneous nephrostomies in place and the patient had been preoperatively treated with suppressive antibiotics for her positive nephrostomy culture. She is being admitted for surgical intervention. HOSPITAL COURSE: The patient was admitted on 04/26/2016 after a right open ureteral resection and reanastomosis. Please see operative report for further details. Over the course of the following days, the patient's diet and activity were slowly advanced. By postoperative day #3, she was ambulating in the hallways, tolerating a regular diet with good appetite and comfortable on oral pain medication. A MARGARITA drain had put out minimal output over the course of her admission and a Santos catheter was removed prior to discharge home. Plan will be for antegrade nephrostogram approximately 2 weeks on discharge for consideration of a PCN removal. DISCHARGE INSTRUCTIONS: Please see discharge instruction sheet and medication list for further details. The patient is instructed to contact our service should she note any fevers, chills, nausea, vomiting or other significant difficulties in the postoperative period. Postoperative appointments are confirmed.
== END 2016-04-29 14:40 | disposition home or self-care (01) | DRG 659 ==
LOC: ENRESERVTM → ENRESERVDT → C.ACU 05:25 → C.MSW 07:00
PROVIDERS: ADMIT Urology; ATTEND Urology
PROC: 0T1 Urinary System, Bypass (ICD-10-PCS; 2016-04-26)
PROC: 0T768DZ Dilation of Right Ureter with Intraluminal Device, Via Natural or Artificial Opening Endoscopic (ICD-10-PCS; 2016-04-26)
PROC: 04QH0ZZ Repair Right External Iliac Artery, Open Approach (ICD-10-PCS; 2016-04-26)
PROC: 0TT60ZZ Resection of Right Ureter, Open Approach (ICD-10-PCS; principal; 2016-04-26 07:15)
DX: N13.1 Hydronephrosis with ureteral stricture, not elsewhere classified (principal); S35.511A Injury of right iliac artery, initial encounter; Y83.8 Other surgical procedures as the cause of abnormal reaction of the patient, or of later complication, without mention of misadventure at the time of the procedure

== ENCOUNTER → 2016-05-07 | Outpatient (CLI) | payer BC ==
[~2016-05-07] MED LIST changes: +HYDR-5688 PO
--- NOTE | 2016-05-07 10:13 | DIAGNOSTIC IMAGING REPORT ---
RIGHT ANTEGRADE NEPHROSTOGRAM CLINICAL HISTORY: Right hydronephrosis. Ureteral obstruction status post right ureteral resection and re-anastomosis. COMPARISON STUDY: PET/CT February 20, 2016. FLUOROSCOPY TIME: 1.9 minutes. PROCEDURE AND FINDINGS: A fiction writer fluoroscopic image of the right kidney, ureter and bladder was obtained. This demonstrated a right nephrostomy catheter and a right-sided ureteral stent which appears appropriately positioned. There are skin stormy. 50 cc of Optiray 300 was then injected through the patient's indwelling right nephrostomy and fluoroscopic images were obtained. 15 fluoroscopic images were obtained. These images demonstrate moderate to severe right hydronephrosis which may be accentuated due to contrast injection. There is also moderate dilatation of the proximal to mid right ureter. Contrast did pass into the bladder. On real-time fluoroscopic imaging, contrast was shown passing through the mid right ureter although the ureter appeared narrowed. The narrowing appeared smooth. No contrast extravasation was identified. The patient tolerated the procedure well and no medial cup occasions were evident. IMPRESSION: 1. Moderate to severe right hydronephrosis and moderate dilatation of the proximal to mid right ureter with smooth area of narrowing within the mid right ureter. However, contrast did pass through this area of narrowing (likely moderate in degree) and into the bladder. No complete ureteral obstruction. No contrast extravasation. 2. Appropriately positioned right nephrostomy and right ureteral stent. Electronically signed by: Moisés Plummer M.D. 05/07/2016 10:12 AM Dictated Date/Time: 05/07/2016 10:04 AM
== END | disposition home or self-care (01) ==
LOC: C.RAD 08:33
PROVIDERS: ATTEND Urology
DX: N13.30 Unspecified hydronephrosis (principal); N13.5 Crossing vessel and stricture of ureter without hydronephrosis; C56.9 Malignant neoplasm of unspecified ovary

== ENCOUNTER → 2016-05-08 | Outpatient (CLI) | payer BC | END | disposition home or self-care (01) | LOC: C.LABSPEC 16:50 | PROVIDERS: ATTEND Urology | DX: N13.30 Unspecified hydronephrosis (principal); N39.0 Urinary tract infection, site not specified; N13.5 Crossing vessel and stricture of ureter without hydronephrosis ==

== ENCOUNTER → 2016-05-25 | Outpatient (CLI) | payer BC | END | disposition home or self-care (01) | LOC: C.LAB 09:16 | PROVIDERS: ATTEND Nurse Practitioner Family | DX: N39.0 Urinary tract infection, site not specified (principal) ==

== ENCOUNTER → 2016-06-01 | Outpatient (CLI) | payer BC ==
[2016-06-01 10:07] LABS: BLOOD UREA NITROGEN 18 mg/dl (7-18); BUN/CREATININE RATIO 21.1 (10-20); CREATININE 0.83 mg/dl (0.60-1.20)
== END | disposition home or self-care (01) ==
LOC: C.LAB 08:43
PROVIDERS: ATTEND Urology
DX: N13.30 Unspecified hydronephrosis (principal); N13.5 Crossing vessel and stricture of ureter without hydronephrosis; N39.0 Urinary tract infection, site not specified

== ENCOUNTER → 2016-06-15 | Outpatient (CLI) | payer BC ==
--- NOTE | 2016-06-15 14:30 | DIAGNOSTIC IMAGING REPORT ---
IVP CLINICAL HISTORY: Right hydronephrosis. Ureteral obstruction status post right ureteral resection and re-anastomosis. COMPARISON STUDY: PET/CT February 20, 2016 and right antegrade nephrostogram May 07, 2016. TECHNIQUE: A transit driver KUB was initially obtained. An intravenous pyelogram was then performed following intravenous injection of 100 cc of Optiray 300 IV. FINDINGS: A right double-J ureteral stent is in place. The right sided nephrostomy catheter has been removed since exam of May 07, 2016. Pelvic calcifications represent phleboliths. There are surgical clips adjacent to the right ureteral stent. The right nephrogram is slightly delayed. Mild right hydronephrosis has improved since exam of May 17, 2016. A small amount of contrast is noted external to the stent within the proximal right ureter. The majority of the contrast likely passes through the stent although this is difficult to assess on this examination. There is no significant post void residual. There is no left collecting system dilatation. IMPRESSION: 1. Mild right hydronephrosis, improved since exam of May 07, 2016. 2. Right ureteral stent in place. Interval removal of right nephrostomy catheter since prior exam. 2. No left hydronephrosis or hydroureter. Electronically signed by: Moisés Plummer M.D. 06/15/2016 2:29 PM Dictated Date/Time: 06/15/2016 2:20 PM
== END | disposition home or self-care (01) ==
LOC: C.RAD 12:30
PROVIDERS: ATTEND Urology
DX: N13.30 Unspecified hydronephrosis (principal); N39.0 Urinary tract infection, site not specified; N13.5 Crossing vessel and stricture of ureter without hydronephrosis

== ENCOUNTER → 2016-07-31 | Outpatient (CLI) | payer BC ==
[2016-07-31 09:39] LABS: BLOOD UREA NITROGEN 20 mg/dl (7-18); BUN/CREATININE RATIO 21.1 (10-20); CREATININE 0.97 mg/dl (0.60-1.20)
== END | disposition home or self-care (01) ==
LOC: C.LAB 07:59
PROVIDERS: ATTEND Urology
DX: N13.30 Unspecified hydronephrosis (principal); N13.5 Crossing vessel and stricture of ureter without hydronephrosis; N39.0 Urinary tract infection, site not specified

== ENCOUNTER → 2016-08-06 | Outpatient (CLI) | payer BC ==
[~2016-08-06] MED LIST changes: +OPTIRAY 300 IV PRN
--- NOTE | 2016-08-06 15:38 | DIAGNOSTIC IMAGING REPORT ---
IV PYELOGRAM CLINICAL HISTORY: Right-sided hydronephrosis. COMPARISON STUDY: IV pyelogram 06/15/2016 and correlated with abdominal CT dated 07/26/2015. TECHNIQUE: An abdominal forensic examiner radiograph is performed. IVP pyelogram was then performed following the IV administration of 100 cc of Optiray contrast, tomographic images are acquired in the corticomedullary and excretory phases of enhancement. Overhead views of the renal collecting system and bladder were obtained in multiple obliquities both pre and post void. FINDINGS: An abdominal forensic examiner radiograph shows a nonobstructed abdominal bowel gas pattern. The right ureteral stent has been removed. There is no radiographic evidence of nephrolithiasis. Calcified phleboliths are observed in the pelvis. Surgical clips and suture material are seen in the right lower quadrant. The skeletal structures are osteopenic. There is lumbosacral spondylosis. A large bone island in the right acetabulum is unchanged. Following contrast administration there is symmetric renal cortical enhancement and contrast excretion. There are small bilateral extrarenal pelvises. There is mild fullness of the right renal collecting system without marilyn hydronephrosis. There are no filling defects identified bilaterally to suggest urothelial lesion. The mid to distal right ureter was suboptimally opacified. The bladder is normal as imaged. No significant post void residual is seen. IMPRESSION: 1. The right ureteral stent has been removed from previous. 2. The kidneys enhance and excrete symmetrically. 3. There is mild fullness of the right renal collecting system without evidence of marilny hydronephrosis. 4. The bladder was normal as imaged. Electronically signed by: lAistair Nj M.D. 08/06/2016 3:37 PM Dictated Date/Time: 08/06/2016 3:32 PM
== END | disposition home or self-care (01) ==
LOC: C.RAD 12:26
PROVIDERS: ATTEND Urology
DX: N13.30 Unspecified hydronephrosis (principal); N13.5 Crossing vessel and stricture of ureter without hydronephrosis; N39.0 Urinary tract infection, site not specified

== ENCOUNTER → 2016-08-07 | Outpatient (CLI) | payer BC ==
[~2016-08-07] MED LIST changes: -OPTIRAY 300 IV PRN
--- NOTE | 2016-08-07 15:26 | DIAGNOSTIC IMAGING REPORT ---
CHEST CT WITH CONTRAST CT DOSE: 661.48 mGy.cm HISTORY: Neoplasm ENDOMETRIAL CA TECHNIQUE: Multiaxial CT images of the chest were performed following the intravenous administration of contrast. COMPARISON: 07/26/2015 FINDINGS: Scattered fibrotic and fibrocalcific calcific changes. No significant hilar or mediastinal adenopathy. No focal infiltrate. No significant parenchymal nodular pathology. Limited evaluation the upper abdomen show several small hepatic cysts unchanged in the prior study. IMPRESSION: Chronic change. No acute process. No change from the prior exam. Electronically signed by: Delio Sun M.D. 08/07/2016 3:24 PM Dictated Date/Time: 08/07/2016 3:18 PM
--- NOTE | 2016-08-07 15:39 | DIAGNOSTIC IMAGING REPORT ---
CT SCAN OF THE ABDOMEN AND PELVIS WITH IV CONTRAST CLINICAL HISTORY: Endometrial carcinoma. COMPARISON STUDY: Abdominal CT dated 07/26/2015. PET/CT dated 02/20/2016. TECHNIQUE: Following the IV administration of 118 cc of Optiray 320, CT scan of the abdomen and pelvis is performed from the lung bases to the proximal femora. Images are reviewed in the axial, sagittal, and coronal planes. IV contrast was administered without complication. Automated dose control exposure was utilized. FINDINGS: Lung bases: The heart is normal in size and without pericardial effusion. Postoperative change is suggested in the lingula. Linear atelectasis versus scarring is seen at the right lung base. No airspace consolidation or pleural effusion is identified. Liver: The contrast-enhanced liver is normal in size, contour, and attenuation. There is no intrahepatic biliary ductal dilatation. There are scattered subcentimeter hepatic hypodensities. These likely represent cysts but are too small for definitive characterization. These are unchanged from previous. Fatty infiltration is noted adjacent to the falciform ligament. The hepatic veins and portal veins are patent. Gallbladder: Unremarkable. Spleen: Normal in size and attenuation. Pancreas: Atrophic and grossly unremarkable. Adrenal glands: Unremarkable. Kidneys: The contrast enhanced kidneys demonstrate cortical atrophy. There is mild right hydronephrosis, which is new from 07/26/2015. There is urothelial thickening and irregularity seen in the proximal right ureter as seen on image #207 located just below the ureteropelvic junction. There is no left-sided hydronephrosis. The kidneys enhance symmetrically. A 10 mm cortical hypodensity in the lower pole the right kidney likely represents a cyst but is too small for definitive characterization. Abdominal vasculature: The abdominal aorta is normal in course and caliber noting moderate atherosclerotic calcification. Bowel: The small bowel and colon are normal in course and caliber. A large duodenal diverticulum is identified. There is moderate sigmoid diverticulosis without CT evidence of acute diverticulitis. The appendix is well-visualized and normal. Peritoneum: There is no intraperitoneal free air or abdominal ascites. A midline surgical scar is noted. There is a small fat-containing ventral hernia in the pelvis. There is an 11 mm soft tissue implant seen along the right iliac vessels at the bifurcation on axial image #308. There are surgical clips seen along the right iliac chain. Lymphadenopathy: None. Pelvic viscera: The bladder is normal as visualized. The uterus is surgically absent. No adnexal lesion is seen. Skeletal structures: The skeletal structures are osteopenic. Mild lumbosacral spondylosis is observed. No lytic or blastic lesions are seen. A large bone island is present in the right acetabulum. IMPRESSION: 1. There is a new 11 mm soft tissue implant seen along the right iliac chain anterior to the iliac bifurcation. The appearance is highly concerning for recurrence. 2. No additional foci of metastatic disease are identified in the abdomen or pelvis. 3. There is mild right hydronephrosis, which is new from previous. A percutaneous nephrostomy tube has been removed from 02/20/2016. Additionally, there is apparent urothelial thickening and irregularity identified just below the right ureteropelvic junction. This could represent stricture/inflammation or possibly a urothelial lesion. Follow-up with urology is recommended. 4. Moderate sigmoid diverticulosis without CT evidence of acute diverticulitis. 5. Additional findings as detailed above. Electronically signed by: Alistair Nj M.D. 08/07/2016 3:37 PM Dictated Date/Time: 08/07/2016 3:23 PM
== END | disposition home or self-care (01) ==
LOC: C.CTS 14:30
PROVIDERS: ATTEND Nurse Practitioner Family
DX: C54.1 Malignant neoplasm of endometrium (principal); K57.30 Diverticulosis of large intestine without perforation or abscess without bleeding

== ENCOUNTER → 2016-08-09 | Outpatient (CLI) | payer BC ==
[~2016-08-09] MED LIST changes: +FUROSEMIDE INJ 10 MG/ML 2 ML VIAL IV ONE
--- NOTE | 2016-08-09 13:01 | DIAGNOSTIC IMAGING REPORT ---
NUCLEAR DIURETIC RENAL SCAN CLINICAL HISTORY: Right-sided hydronephrosis. COMPARISON STUDY: Abdominal CT dated 08/07/2016. IVP dated 08/06/2016. TECHNIQUE: A nuclear diuretic renal scan is performed following the IV administration of 8.8 mCi technetium 99m radiolabeled MAG3. Posterior flow images were acquired at one frame every two seconds for a total 30 frames. Posterior static images were acquired every 5 minutes for a total of 45 minutes. IV Lasix was administered at 20 minutes. Renal curves were calculated. FINDINGS: On the flow images, there is clearly diminished perfusion of the right kidney as compared to left. On the delayed images, there is increased activity within the left kidney as compared to the right. There is somewhat delayed excretion of activity from the right kidney as compared to left. There was appropriate response to Lasix bilaterally which was administered at 20 minutes. There is no obvious hydronephrosis identified. Time to peak activity on the right measures 5 minutes and time to peak on the left measures 3 minutes The time to T 1/2 pre-Lasix on the right measures 24 min and the T 1/2 half pre-Lasix on the left measures 12 min. The time to T 1/2 half post Lasix on the right measures 26 min and the T 1/2 post-Lasix on the left measures 24 min. Split function measures 29% on the right and 71% on the left. IMPRESSION: 1. There is asymmetrically diminished perfusion of the right kidney as above. 2. Split function measures 71% on the left and 29% on the right. 3. Mild hydronephrosis seen by CT was not apparent on this nuclear examination. 4. There was delayed excretion of contrast from the right kidney as compared to left. Both kidneys responded appropriately to Lasix. Electronically signed by: Alistair Nj M.D. 08/09/2016 12:59 PM Dictated Date/Time: 08/09/2016 12:48 PM
== END | disposition home or self-care (01) ==
LOC: C.NUCL 11:07
PROVIDERS: ATTEND Urology
DX: N13.30 Unspecified hydronephrosis (principal)

== ENCOUNTER → 2016-08-21 | Outpatient (CLI) | payer BC ==
[~2016-08-21] MED LIST changes: -FUROSEMIDE INJ 10 MG/ML 2 ML VIAL IV ONE
--- NOTE | 2016-08-22 14:34 | MAMMOGRAPHY REPORT ---
BILATERAL DIGITAL SCREENING MAMMOGRAM TOMOSYNTHESIS WITH CAD: 08/21/2016 CLINICAL HISTORY: Routine screening. Patient has no complaints. TECHNIQUE: Breast tomosynthesis in addition to standard 2D mammography was performed. Current study was also evaluated with a Computer Aided Detection (CAD) system. COMPARISON: Comparison is made to exams dated: 08/04/2015 ultrasound, 08/04/2015 mammogram, 08/06/2014 u ltrasound, 08/06/2014 mammogram, 06/19/2013 mammogram, and 08/02/2014 mammogram - [facility]. BREAST COMPOSITION: There are scattered areas of fibroglandular density in both breasts. FINDINGS: There are minimal vascular calcifications in the breasts. A Port-A-Cath projects in the far superior left axillary region on the MLO view. No new suspicious mass, architectural distortion or cluster of microcalcifications is seen. IMPRESSION: ACR BI-RADS CATEGORY 1: NEGATIVE There is no mammographic evidence of malignancy. A 1 year screening mammogram is recommended. The p atient will receive written notification of the results. Approximately 10% of breast cancers are not detected with mammography. A negative mammographic repor t should not delay biopsy if a clinically suggestive mass is present. Eloisa Hayden M.D. ay/:08/21/2016 18:31:28 Machine Tool Dresser: Clem[address], [facility] letter sent: Normal 1/2 BI-RADS Code: ACR BI-RADS Category 1: Negative
== END | disposition home or self-care (01) ==
LOC: C.MAMM 09:04
PROVIDERS: ATTEND Internal Medicine Hematology & Oncology
DX: Z12.31 Encounter for screening mammogram for malignant neoplasm of breast (principal)

== ENCOUNTER → 2016-10-15 | Outpatient (CLI) | payer BC ==
[~2016-10-15] MED LIST changes: +OPTIRAY 320 IV PRN
--- NOTE | 2016-10-15 14:51 | DIAGNOSTIC IMAGING REPORT ---
CT SCAN OF THE ABDOMEN AND PELVIS WITH IV CONTRAST CLINICAL HISTORY: Endometrial carcinoma. COMPARISON STUDY: Abdominal CT dated 08/07/2016 and 07/26/2015. PET/CT dated 02/20/2016. TECHNIQUE: Following the IV administration of 93 cc of Optiray 320, CT scan of the abdomen and pelvis is performed from the lung bases to the proximal femora. Images are reviewed in the axial, sagittal, and coronal planes. IV contrast was administered without complication. Automated dose control exposure was utilized. FINDINGS: Lung bases: The heart is normal in size and without pericardial effusion. Linear atelectasis versus scarring is seen at the right lung base. No airspace consolidation or pleural effusion is identified. Liver: The contrast-enhanced liver is normal in size, contour, and attenuation. There is no intrahepatic biliary ductal dilatation. There are scattered subcentimeter hepatic hypodensities. These likely represent cysts but are too small for definitive characterization. These are unchanged from previous. Fatty infiltration is noted adjacent to the falciform ligament. The hepatic veins and portal veins are patent. Gallbladder: Unremarkable. Spleen: Normal in size and attenuation. Pancreas: Atrophic and grossly unremarkable. Adrenal glands: Unremarkable. Kidneys: The contrast enhanced kidneys demonstrate cortical atrophy. There is mild right hydronephrosis, similar to 08/07/2016 examination. Urothelial thickening in the right renal pelvis appears improved from previous. There is no left-sided hydronephrosis. The kidneys enhance symmetrically. A 10 mm cortical hypodensity in the lower pole the right kidney likely represents a cyst but is too small for definitive characterization. Abdominal vasculature: The abdominal aorta is normal in course and caliber noting moderate atherosclerotic calcification. Bowel: The small bowel and colon are normal in course and caliber. A large duodenal diverticulum is identified. There is moderate sigmoid diverticulosis without CT evidence of acute diverticulitis. The appendix is well-visualized and normal. Peritoneum: There is no intraperitoneal free air or abdominal ascites. A midline surgical scar is noted. There is a small fat-containing ventral hernia in the pelvis. There is unchanged appearance of a 10 mm soft tissue implant seen along the right iliac vessels at the bifurcation on axial image #295. There are surgical clips seen along the right iliac chain. Lymphadenopathy: None. Pelvic viscera: The bladder is normal as visualized. The uterus is surgically absent. No adnexal lesion is seen. Skeletal structures: The skeletal structures are osteopenic. Mild lumbosacral spondylosis is observed. No lytic or blastic lesions are seen. A large bone island is present in the right acetabulum. IMPRESSION: 1. There has been no significant change from 08/07/2016. There is no evidence of progressive metastatic disease. 2. A 10 mm soft tissue implant along the right iliac chain is similar appearance to previous. 3. No additional foci of metastatic disease are suspect in the abdomen or pelvis. 4. Mild right hydronephrosis is unchanged from previous. Urothelial thickening has improved from the prior study. 5. Moderate sigmoid diverticulosis without CT evidence of acute diverticulitis. 6. Additional findings as detailed above. Electronically signed by: Alistair Nj M.D. 10/15/2016 2:50 PM Dictated Date/Time: 10/15/2016 2:38 PM
== END | disposition home or self-care (01) ==
LOC: C.CTS 14:03
PROVIDERS: ATTEND Nurse Practitioner Family
DX: C54.1 Malignant neoplasm of endometrium (principal); K57.30 Diverticulosis of large intestine without perforation or abscess without bleeding

== ENCOUNTER → 2017-01-21 | Outpatient (CLI) | payer BC ==
--- NOTE | 2017-01-21 13:06 | DIAGNOSTIC IMAGING REPORT ---
(CHEST) THORAX WITH CT DOSE: 1268.60 mGycm HISTORY: Endometrial carcinoma C54.1 TECHNIQUE: Multiaxial CT images of the chest were performed following the intravenous administration of contrast. A dose lowering technique was utilized adhering to the principles of ALARA. COMPARISON: 08/07/2016 FINDINGS: Minimal scattered fibrotic and/or scarlike changes throughout both hemithoraces. These are stable as compared to the prior exam. There are no new or interval nodular findings. There are no focal infiltrative changes. No significant mediastinal or hilar adenopathy. Mild stable degenerative change of the osseous structures throughout. IMPRESSION: No significant abnormality identified within the chest. Chronic scattered fibrotic changes unaltered from the prior exam. No new or interval finding. The above report was generated using voice recognition software. It may contain grammatical, syntax or spelling errors. Electronically signed by: Delio Sun M.D. 01/21/2017 1:05 PM Dictated Date/Time: 01/21/2017 1:01 PM
--- NOTE | 2017-01-21 13:14 | DIAGNOSTIC IMAGING REPORT ---
ABDOMEN AND PELVIS CT WITH IV AND ORAL CONTRAST CT DOSE: HISTORY: C54.1 RESTAGING ENDOMETRIAL CANCER TECHNIQUE: Multiaxial CT images of the abdomen and pelvis were performed following the use of intravenous and oral contrast. A dose lowering technique was utilized adhering to the principles of ALARA. COMPARISON STUDY: Abdomen and pelvis CT 10/15/2016. FINDINGS: Suture material within the right lower lobe and lingula consistent with prior wedge resection. Stable cirrhotic focus within the right acetabulum. This is likely benign. No suspicious lytic or blastic osseous lesions. There are few scattered hypodense lesions within the liver with the largest in the right hepatic lobe measuring 11 mm. These are unchanged from the prior study and likely represent cysts. The spleen, adrenal glands, pancreas, and gallbladder are unremarkable. A 4 cm diverticulum at the second portion of the duodenum. Stable scarlike thickening within the midline of the anterior abdominal wall. A few subcentimeter hypodense lesions within the kidneys are too small to characterize but favor cysts. These are not significantly changed. Mild fullness within the right renal collecting system and mild right urothelial thickening remains unchanged. Stable 1 cm soft tissue implant adjacent to the right iliac vessels on axial image 311. There are surgical clips along the right iliac dania chain. The bladder is unremarkable. The uterus is surgically absent. No bowel wall thickening or obstruction. Colonic diverticulosis. Normal appendix. IMPRESSION: 1. Stable 1 cm soft tissue implant along the right iliac chain. No additional foci of metastatic disease within the abdomen or pelvis. 2. Mild fullness within the right renal collecting system and mild right urothelial thickening remains stable. Electronically signed by: Wili Aguiar M.D. 01/21/2017 1:12 PM Dictated Date/Time: 01/21/2017 1:03 PM
== END | disposition home or self-care (01) ==
LOC: C.CTS 11:25
PROVIDERS: ATTEND Nurse Practitioner Family
DX: C54.1 Malignant neoplasm of endometrium (principal)

== ENCOUNTER → 2017-02-05 | Outpatient (CLI) | payer BC ==
[~2017-02-05] MED LIST changes: -OPTIRAY 320 IV PRN
== END | disposition home or self-care (01) ==
LOC: C.MAMM 14:29
PROVIDERS: ATTEND Family Medicine
DX: M85.88 Other specified disorders of bone density and structure, other site (principal)

== ENCOUNTER → 2017-02-08 | Day surgery (SDC) | payer BC ==
[2017-02-05 07:48] VITALS: Ht 163.8 cm; Wt 73.6 kg
[~2017-02-08] VITALS: Ht 163.8 cm; Wt 73.6 kg
[~2017-02-08] MED LIST changes: -AMPI500C9 PO; +ATROPINE SULFATE 0.1 MG/ML 5ML SYR IV PRN; +CEFAZOLIN 2000 MG/60 ML D5W IV SCH; +EpHEDrine SULFATE INJ 50 MG/ML AMP IV PRN; +FENTANYL CITRATE INJ 50 MCG/1 ML 2 ML VIAL ONE; +HYDROCODONE/ACETAMOPHEN 5/325MG TAB PO PRN; +LACTATED RINGER'S 1000ML 1,000 ML IV SCH; +LIDOCAINE HCL 1% 20 ML VIAL ONE; +LIDOCAINE HCL 2% 2 ML VIAL (20MG/ML) ONE; +MIDAZOLAM HCL 1 MG/ML 2ML VIAL ONE; +PROPOFOL IV EMULSION 10 MG/ML 20 ML VIAL IV ONE; +SODIUM CHLORIDE 0.9% 1000ML 1,000 ML IV SCH
--- NOTE | 2017-02-08 06:47 | Discharge Instructions-SurgCtr ---
Discharge Instructions Date of Service Feb 08, 2017. Visit Reason for Visit: Port A Cath In Place Discharge Discharge Diagnosis / Problem: port in place, uterine ca Discharge Goals Goal(s): Decrease discomfort, Improve function Activity Recommendations Activity Limitations: as noted below Lifting Limitations: no more than 25 pounds (for 2 weeks) Exercise/Sports Limitations: until after follow-up appointment May Resume Sexual Activity: when tolerated Shower/Bathe: tomorrow Driving or Machine Use: resume 1 day after discharge SPECIAL CARE INSTRUCTIONS: * Cover incisions and change daily for comfort/drainage. * May use ibuprofen for pain as tolerated. * Expect some swelling and bruising. Call your doctor if: * Temperature above 101 degrees * Pain not relieved by pain medicine ordered * There is increased drainage or redness from any incision * You have any unanswered questions or concerns [phone]. FOLLOW UP VISIT: If not already scheduled, please call the office for a follow-up visit. for 2 weeks- [facility] OFFICE PHONE NUMBER: Dr. Hdez Office Anesthesia . Post Anesthesia Instructions: If you have had General Anesthesia or IV Sedation: * Do not drive today. * Resume driving when surgeon permits. * Do not make important decisions or sign legal documents today. * Call surgeon for: 1. Temperature elevations greater than 101 degrees F. 2. Uncontrollable pain. 3. Excessive bleeding. 4. Persistent nausea and vomiting. 5. Medication intolerance (nausea, vomiting or rash). * For nausea and vomiting use only clear liquids such as: tea, soda, bouillon until nausea subsides, then gradually increase diet as tolerated. * If you have any concerns or questions, call your surgeon's office. If physician is unavailable and it is an emergency, call 911 or go to the nearest emergency room. . Diet Recommendations Home Diet: resume previous diet Pending Studies Studies pending at discharge: no Medical Emergencies . Who to Call and When: Medical Emergencies: If at any time you feel your situation is an emergency, please call 911 immediately. . Non-Emergent Contact Non-Emergency issues call your: Primary Care Provider, Surgeon . . "Provider Documentation" section prepared by Santosh Hdez. .
[2017-02-08 07:30] VITALS: TEMP 36
--- NOTE | 2017-02-08 07:30 | [facility] Operative Report ---
Operative Report Operative Date Feb 08, 2017. Pre-Operative Diagnosis Infusaport in Place Post-Operative Diagnosis Same Procedure(s) Performed Infusaport Removal Surgeon Dr. Traci Hdez Physician Chief Of Pathology Surgeon(s) None Findings port Lt chest Specimens A. Explanted Infusaport Anesthesia local/ sedation Complication(s) None Disposition Recovery Room / PACU I attest to the content of the Intraoperative Record and any orders documented therein. Any exceptions are noted below.
--- NOTE | 2017-02-08 07:37 | OPERATIVE REPORT ---
DATE OF OPERATION: 02/08/2017 NAME OF OPERATION: Port removal. PREOPERATIVE DIAGNOSIS: Uterine cancer and port in place. POSTOPERATIVE DIAGNOSIS: Same. STAFF SURGEON: Dr. Hdez. ANESTHESIA: 1% plain lidocaine with sedation. PROCEDURE: The patient was brought in the operating room and placed on the operating table in supine position. Her left chest was prepped and draped in usual fashion. She had sedation and then using 1% plain lidocaine, skin and subcutaneous tissue at the previous scar were anesthetized. Incision made carrying dissection down identifying the port. It was very well incorporated. It was dissected from surrounding tissue and then the catheter removed with the tunnel oversewn using 2-0 chromic catgut suture. The deep tissue was then reapproximated using 2-0 chromic catgut suture then the skin reapproximated using 4-0 nylon suture. The patient was transferred to recovery room in stable condition with dressing in place. I attest to the content of the Intraoperative Record and any orders documented therein. Any exception s are noted below.
[2017-02-08 07:48] VITALS: BP 107/69; PULSE 72; O2SAT 100
--- NOTE | 2017-02-08 07:50 | Anesthesia Progress Nt - [facility] ---
Anesthesia Post Op Note Date & Time Feb 08, 2017 at 07:50 Vital Signs Pain Intensity: 0 Vital Signs Past 12 Hours Date Time Temp Pulse Resp B/P (MAP) Pulse Ox O2 Delivery O2 Flow Rate FiO2 02/08/17 07:30 36 82 14 103/60 (74) 95 Room Air 02/08/17 06:24 36.5 90 16 117/74 (88) 96 Room Air Notes Mental Status: alert / awake / arousable, participated in evaluation Pt Amnestic to Procedure: Yes Nausea / Vomiting: adequately controlled Pain: adequately controlled Airway Patency, RR, SpO2: stable & adequate BP & HR: stable & adequate Hydration State: stable & adequate Anesthetic Complications: no major complications apparent
== END | disposition home or self-care (01) ==
LOC: X.SURG 06:10
PROVIDERS: ATTEND Surgery
DX: Z45.2 Encounter for adjustment and management of vascular access device (principal); Z85.42 Personal history of malignant neoplasm of other parts of uterus; Z90.710 Acquired absence of both cervix and uterus; Z90.721 Acquired absence of ovaries, unilateral; Z79.899 Other long term (current) drug therapy

== ENCOUNTER → 2017-05-14 | Outpatient (CLI) | payer BC ==
[~2017-05-14] MED LIST changes: -ATROPINE SULFATE 0.1 MG/ML 5ML SYR IV PRN; -CEFAZOLIN 2000 MG/60 ML D5W IV SCH; -EpHEDrine SULFATE INJ 50 MG/ML AMP IV PRN; -FENTANYL CITRATE INJ 50 MCG/1 ML 2 ML VIAL ONE; -HYDROCODONE/ACETAMOPHEN 5/325MG TAB PO PRN; -LACTATED RINGER'S 1000ML 1,000 ML IV SCH; -LIDOCAINE HCL 1% 20 ML VIAL ONE; -LIDOCAINE HCL 2% 2 ML VIAL (20MG/ML) ONE; -MIDAZOLAM HCL 1 MG/ML 2ML VIAL ONE; +OPTIRAY 320 IV PRN; -PROPOFOL IV EMULSION 10 MG/ML 20 ML VIAL IV ONE; -SODIUM CHLORIDE 0.9% 1000ML 1,000 ML IV SCH
--- NOTE | 2017-05-14 13:45 | DIAGNOSTIC IMAGING REPORT ---
ABDOMEN AND PELVIS CT WITH IV CONTRAST CT DOSE: 667.06 mGy.cm HISTORY: ENDOMETRIAL CARCINOMA TECHNIQUE: Multiaxial CT images of the abdomen and pelvis were performed following the use of intravenous contrast. A dose lowering technique was utilized adhering to the principles of ALARA. COMPARISON STUDY: Abdomen and pelvis CT 01/21/2017. FINDINGS: Suture material within the right lower lobe and lingula consistent with prior wedge resection. Stable sclerotic focus within the right acetabulum. This is likely benign. No suspicious lytic or blastic osseous lesions. There are few scattered hypodense lesions within the liver with the largest in the right hepatic lobe measuring 11 mm. These are unchanged from the prior study and likely represent cysts. The spleen, adrenal glands, pancreas, and gallbladder are unremarkable. A 4 cm diverticulum at the second portion of the duodenum. Stable scarlike thickening within the midline of the anterior abdominal wall. A few subcentimeter hypodense lesions within the kidneys are too small to characterize but favor cysts. These are not significantly changed. Mild fullness within the right renal collecting system and mild right urothelial thickening remains unchanged. Stable 1 cm soft tissue implant adjacent to the right iliac vessels on axial image 306. There are surgical clips along the right iliac dania chain. The bladder is unremarkable. The uterus is surgically absent. No bowel wall thickening or obstruction. Colonic diverticulosis. Normal appendix. IMPRESSION: 1. Stable 1 cm soft tissue implant along the right iliac chain. No additional foci of metastatic disease within the abdomen or pelvis. 2. Mild fullness within the right renal collecting system and mild right urothelial thickening remains stable. Electronically signed by: Wili Aguiar M.D. 05/14/2017 1:43 PM Dictated Date/Time: 05/14/2017 1:36 PM
--- NOTE | 2017-05-14 13:55 | DIAGNOSTIC IMAGING REPORT ---
CHEST CT WITH CONTRAST HISTORY: Follow-up study in a patient with history of endometrial carcinoma ENDOMETRIAL CARCINOMA TECHNIQUE: Multiaxial CT images of the chest were performed following the intravenous administration of contrast. A dose lowering technique was utilized adhering to the principles of ALARA. COMPARISON: CT abdomen and pelvis of same day, CT chest 01/21/2017. FINDINGS: Thyroid appears homogeneous. No pathologic-appearing adenopathy about the chest. 6 mm right hilar lymph node is likely physiologic. Heart is normal in size without pericardial effusion. Coronary arterial calcifications are present. Thoracic aorta is normal in both course and caliber without aneurysm or dissection identified. Imaged great vessels appear patent. There is moderate atherosclerosis of the aorta. The opacified pulmonary arterial tree is unremarkable. No pneumothorax, pleural effusion, focal airspace consolidation or overt pulmonary edema. Postsurgical changes, suture material material with subsegmental pleural-parenchymal scarring noted within the right upper lung, left midlung and left lung base. No suspicious pulmonary nodules or masses identified. 2 mm pleural-based nodule of the left lung base, image 139 series 4 is unchanged and likely benign. 2 mm nodule of the right lung base on image 121 series 4 suggests perifissural lymph node. Central airways are patent. Low attenuating lesions of the liver measuring up to 1.3 cm within the anterior right hepatic lobe suggests hepatic cysts. No acute abnormality of the imaged upper abdomen. Soft tissues are unremarkable. At least moderate degenerative changes involve the right shoulder. No suspicious lytic or blastic bony lesions. IMPRESSION: 1. No acute intrathoracic abnormality identified. 2. No evidence of metastatic disease or pathologic adenopathy. Electronically signed by: Thony Edwards M.D. 05/14/2017 1:53 PM Dictated Date/Time: 05/14/2017 1:47 PM
== END | disposition home or self-care (01) ==
LOC: C.CTS 13:22
PROVIDERS: ATTEND Nurse Practitioner Family
DX: C54.1 Malignant neoplasm of endometrium (principal)

== ENCOUNTER → 2017-08-30 | Outpatient (CLI) | payer BC ==
--- NOTE | 2017-08-30 14:20 | MAMMOGRAPHY REPORT ---
BILATERAL DIGITAL SCREENING MAMMOGRAM TOMOSYNTHESIS WITH CAD: 08/30/2017 CLINICAL HISTORY: Routine screening. Patient has no complaints. TECHNIQUE: Breast tomosynthesis in addition to standard 2D mammography was performed. Current study was also evaluated with a Computer Aided Detection (CAD) system. COMPARISON: Comparison is made to exams dated: 08/21/2016 mammogram, 08/04/2015 ultrasound, 08/04/2015 ma mmogram, 08/06/2014 ultrasound, 08/06/2014 mammogram, and 08/02/2014 mammogram - [facility]. BREAST COMPOSITION: There are scattered areas of fibroglandular density in both breasts. FINDINGS: No suspicious masses, calcifications, or areas of architectural distortion are noted in ei ther breast. There has been no significant interval change compared to prior exams. Scattered bilater al benign-appearing calcifications are not significantly changed. IMPRESSION: ACR BI-RADS CATEGORY 2: BENIGN There is no mammographic evidence of malignancy. A 1 year screening mammogram is recommended. The pa tient will receive written notification of the results. Approximately 10% of breast cancers are not detected with mammography. A negative mammographic report should not delay biopsy if a clinically suggestive mass is present. Tracy Chen M.D. /:08/30/2017 12:30:15 Camp Assistant: Clemencia Plaza, [facility] letter sent: Normal 1/2 BI-RADS Code: ACR BI-RADS Category 2: Benign
== END | disposition home or self-care (01) ==
LOC: C.MAMM 11:09
PROVIDERS: ATTEND Internal Medicine Hematology & Oncology
DX: Z12.31 Encounter for screening mammogram for malignant neoplasm of breast (principal)

== ENCOUNTER → 2017-09-16 | Outpatient (CLI) | payer BC ==
[~2017-09-16] MED LIST changes: -HYDR-5688 PO
--- NOTE | 2017-09-16 15:19 | DIAGNOSTIC IMAGING REPORT ---
CHEST , ABDOMEN, AND PELVIS CT WITH CONTRAST CT DOSE: 824.96 mGy.cm HISTORY: Endometrial cancer. TECHNIQUE: Multiaxial CT images of the chest , abdomen, and pelvis were performed following the intravenous administration of contrast. Oral contrast was also administered for the abdomen and pelvis CT. A dose lowering technique was utilized adhering to the principles of ALARA. COMPARISON: Chest abdomen and pelvis CT 05/14/2017. FINDINGS: The central airways are patent. No pleural effusions. No pneumothorax. Scattered areas of suture material within the lungs consistent with prior wedge resections. No new or suspicious pulmonary nodules identified. No suspicious lytic or blastic osseous lesions. No mediastinal or hilar lymphadenopathy. The heart is normal in size. Normal caliber thoracic aorta. Stable sclerotic focus within the right acetabulum. This is likely benign. No suspicious lytic or blastic osseous lesions. There are few scattered hypodense lesions within the liver with the largest in the right hepatic lobe measuring 11 mm. These are unchanged from the prior study and likely represent cysts. The spleen, adrenal glands, pancreas, and gallbladder are unremarkable. A 4 cm diverticulum at the second portion of the duodenum. Stable scarlike thickening within the midline of the anterior abdominal wall. A few subcentimeter hypodense lesions within the kidneys are too small to characterize but favor cysts. These are not significantly changed. Mild fullness within the right renal collecting system and mild right urothelial thickening remains unchanged. Stable 1 cm soft tissue implant adjacent to the right iliac vessels on axial image 303. There are surgical clips along the right iliac dania chain. The bladder is unremarkable. The uterus is surgically absent. No bowel wall thickening or obstruction. Colonic diverticulosis. Normal appendix. IMPRESSION: 1. Stable postoperative changes within the chest. No evidence for metastatic disease within the chest. 2. Stable 1 cm soft tissue implant along the right iliac chain. No additional foci of metastatic disease within the abdomen or pelvis. 3. Mild fullness within the right renal collecting system and mild right urothelial thickening remains stable. Electronically signed by: Wili Aguiar M.D. 09/16/2017 3:18 PM Dictated Date/Time: 09/16/2017 3:04 PM
== END | disposition home or self-care (01) ==
LOC: C.CTS 14:38
PROVIDERS: ATTEND Nurse Practitioner Family
DX: C54.1 Malignant neoplasm of endometrium (principal)